=== PATIENT | female | born 1970 | race Two or more races ===

== ENCOUNTER 2019-10-28 15:22 | Emergency (ER) | payer MEDICAID, OTHER ==
[~2019-10-28] VITALS: Ht 170.2 cm; Wt 73.9 kg
[2019-10-28 16:40] VITALS: BP 127/82
== END 2019-10-28 16:43 | disposition home or self-care (01) ==
LOC: ER 15:22
DX: S86.912A Strain of unspecified muscle(s) and tendon(s) at lower leg level, left leg, initial encounter (principal); F17.210 Nicotine dependence, cigarettes, uncomplicated; Z88.2 Allergy status to sulfonamides; X58.XXXA Exposure to other specified factors, initial encounter; Y93.89 Activity, other specified; Y92.89 Other specified places as the place of occurrence of the external cause; Y99.8 Other external cause status
CPT/HCPCS: 93971

== ENCOUNTER 2020-05-02 14:04 | Emergency (ER) | payer MEDICAID ==
[~2020-05-02] VITALS: Ht 170.2 cm; Wt 70.3 kg
[2020-05-02 16:33] VITALS: BP 139/81
== END 2020-05-02 17:22 | disposition home or self-care (01) ==
LOC: ER 14:04
DX: S20.161A Insect bite (nonvenomous) of breast, right breast, initial encounter (principal); L08.9 Local infection of the skin and subcutaneous tissue, unspecified; Z98.51 Tubal ligation status; Z28.82 Immunization not carried out because of caregiver refusal; W57.XXXA Bitten or stung by nonvenomous insect and other nonvenomous arthropods, initial encounter; Y93.89 Activity, other specified; Y92.89 Other specified places as the place of occurrence of the external cause; Y99.8 Other external cause status